=== PATIENT | female | born 1980 | race Caucasian/White ===

== ENCOUNTER 2020-08-09 09:22 | Emergency (ER) | payer OTHER ==
[~2020-08-09] VITALS: Ht 165.1 cm; Wt 92.5 kg
[~2020-08-09 09:22] MED LIST: AMOX500 PO; CEFU250 PO; CODACE30 PO; FLUT.05NI; ONDA4 PO
[2020-08-09 10:05] LABS: Source, Urine Clean Catch
[2020-08-09 10:11] LABS: Bilirubin, Urine Neg (Neg); Blood, Urine 5+ (Neg); Glucose Qualitative, Urine Neg (Neg); Ketones, Urine Neg (Neg); Leukocyte Esterase, Urine 1+ (Neg); Nitrite, Urine Neg (Neg); Protein, Urine 1+ (Neg); Urobilinogen, Urine NORM (Normal)
[2020-08-09 10:31] LABS: Appearance, Urine Hazy (Clear); Color, Urine Yellow (P-Yellow)
[2020-08-09 10:34] LABS: Red Blood Cells, Urine TNTC /hpf (0-2); Squamous Epithelial Cells Few /hpf (Few)
[2020-08-09 10:35] LABS: Bacteria Mod /hpf
[2020-08-09] MEDS ORDERED: Percocet 5-3251 EACH PO (10:47)
[2020-08-09] MEDS ORDERED: ONDA4 PO (10:47)
== END 2020-08-09 10:55 | disposition home or self-care (01) ==
LOC: ER 09:22
PROVIDERS: Physician Assistant
DX: N20.0 Calculus of kidney (principal)
CPT/HCPCS: 81001; 81025; 87086; A9270